=== PATIENT | female | born 1970 | race Caucasian/White ===

== ENCOUNTER 2017-12-22 17:29 | Emergency (ER) | payer SELFPAY ==
[~2017-12-22] VITALS: Ht 170.2 cm; Wt 81.8 kg
[2017-12-22 17:35] VITALS: Ht 170.2 cm; Wt 81.8 kg
[2017-12-22] MEDS ORDERED: FERROUS SULFAT325 MG PO (17:37)
[2017-12-22 18:09] LABS: BASOPHILS 0.4 % (0-2); EOSINOPHILS 2.8 % (0-7); HEMATOCRIT 41.6 % (36.0-48.0); HEMOGLOBIN 13.6 g/dL (12-16); IMMATURE GRANULOCYTES 0.2 % (0-5); LYMPHOCYTES 28.2 % (15-50); MCH 30.2 pg (26.0-34.0); MCHC 32.7 g/dL (31.0-37.0); MCV 92.4 fL (80.0-100.0); MEAN PLATELET VOLUME 9.4 fL (7.4-10.4); MONOCYTES 10.3 % (2-11); NEUTROPHILS 58.1 % (40-80); PLATELET COUNT 261 10x3/uL (130-400); RDW 14.6 % (11.5-14.5)
[2017-12-22 18:28] LABS: ALBUMIN 3.8 g/dL (3.4-5.0); ANION GAP 13.4 mmol/L (8-16); BILIRUBIN - TOTAL 0.37 mg/dL (0.2-1.3); CALCIUM 9.1 mg/dL (8.5-10.1); CARBON DIOXIDE 23.8 mmol/L (21.0-32.0); CREATININE - SERUM 1.2 mg/dL (0.6-1.3); POTASSIUM - SERUM 4.2 mmol/L (3.5-5.1); PROTEIN - SERUM 7.7 g/dL (6.4-8.2)
[2017-12-22] MEDS ORDERED: PROVERA10 MG PO (21:48)
[2017-12-22 22:52] VITALS: BP 162/65
== END 2017-12-22 22:53 | disposition home or self-care (01) ==
LOC: D.ER 17:29
PROVIDERS: Family Medicine
DX: N93.9 Abnormal uterine and vaginal bleeding, unspecified (principal); D25.9 Leiomyoma of uterus, unspecified; F17.200 Nicotine dependence, unspecified, uncomplicated